=== PATIENT | female | born 1950 ===

== ENCOUNTER 2017-12-07 07:00 | Day surgery (SDC) | payer OTHER ==
[~2017-12-07] VITALS: Ht 167.6 cm; Wt 69.4 kg
[~2017-12-07 07:00] MED LIST: ENALAPRIL MALEA10 MG PO; FORTAMET1000 MG PO; GLIPIZIDE ER2.5 MG PO
[2017-12-08] MEDS ORDERED: RECTICARE30 GM TOP (11:08)
[2017-12-08] MEDS ORDERED: ULTRACET PO (11:08)
== END 2017-12-08 11:00 | disposition home or self-care (01) ==
LOC: CIR.AMB 07:00 → SURG 08:30 → EDSTATUS 08:30 → SURH 11:16 → O/R 11:16 → SURG 15:30 → CIR.AMB 12-08 11:00 → SURH 12-08 12:16 → O/R 12-08 12:16
DX: D12.8 Benign neoplasm of rectum (principal); I11.9 Hypertensive heart disease without heart failure